=== PATIENT | female | born 1980 | race African-American/Black ===

== ENCOUNTER 2021-02-27 23:31 | Emergency (ER) | payer MEDICAID ==
[~2021-02-27] VITALS: Ht 165.1 cm; Wt 83.0 kg
[2021-02-27 23:35] VITALS: BP 123/67
[2021-02-28] MEDS ORDERED: NAPR375T5 MT (02:51)
== END 2021-02-28 03:48 | disposition home or self-care (01) ==
LOC: ER 23:31
DX: S90.121A Contusion of right lesser toe(s) without damage to nail, initial encounter (principal); W22.8XXA Striking against or struck by other objects, initial encounter; Y93.89 Activity, other specified; Y92.89 Other specified places as the place of occurrence of the external cause; Y99.8 Other external cause status
CPT/HCPCS: 73660; 99283; Z7610